=== PATIENT | male | born 1985 | race Caucasian/White ===

== ENCOUNTER 2019-04-25 20:34 | Emergency (ER) | payer SELFPAY ==
[2019-04-25 20:44] VITALS: BP 146/105; PULSE 99; RESP 17; TEMP 36.9; O2SAT 98; BMI 25.1
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
[2019-04-25] MEDS: HYDROcodone-acetaminophen 7.5-325 mg Tablet 1 TAB PO (21:23)
[2019-04-25 22:40] VITALS: RESP 18
[2019-04-25] MEDS: morphine 4 mg/mL SDV 1 mL IM (22:40)
[2019-04-25 22:45] VITALS: PULSE 94; RESP 18; O2SAT 95
== END 2019-04-25 22:46 | disposition home or self-care (01) ==
PROVIDERS: Emergency Provider Physician Assistant; Family Provider Nurse Practitioner Family; PCP Nurse Practitioner Family
DX: F17.200 Nicotine dependence, unspecified, uncomplicated (principal); S63.501A Unspecified sprain of right wrist, initial encounter; S66.811A Strain of other specified muscles, fascia and tendons at wrist and hand level, right hand, initial encounter; W22.8XXA Striking against or struck by other objects, initial encounter
CPT/HCPCS: 12345; 73130; 96372; 99281; 99283; J2270

== ENCOUNTER 2020-02-01 12:27 | Emergency (ER) | payer SELFPAY ==
[2020-02-01 12:30] VITALS: BMI 25.8
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
[2020-02-01 12:37] VITALS: BP 111/68; PULSE 136; RESP 16; TEMP 36.6; O2SAT 96
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
[2020-02-01] MEDS: LORazepam 2 mg/mL INJ 1 mL IM (12:55)
[2020-02-01 12:57] LABS: Basophils % 0.1 %; Eosinophils # 0.1 10^3/uL (0.0-0.8); Eosinophils % 0.3 %; Hemoglobin 17.6 g/dL (11.7-16.6); Lymphocytes # 1.3 10^3/uL (0.8-4.8); Mean Corpuscular HGB Conc 34.5 g/dL (30.0-36.0); Mean Platelet Volume 8.7 fL (7.4-10.4); Monocytes # 0.9 10^3/uL (0.2-0.9); Monocytes % 4.3 %; Neutrophils # 18.57 10^3/uL (1.8-7.7); Neutrophils % 88.8 %; Nucleated Red Blood Cells % 0 %; Platelet Count 320 10^3/cmm (130-400); Red Blood Count 5.86 10^6/uL (4.1-5.3); Red Cell Distribution Width 12.3 % (12.1-15.1); White Blood Count 20.9 10^3/uL (4.0-10.0)
[2020-02-01 13:15] LABS: Alanine Aminotransferase 24 U/L (0-41); Albumin Level 4.1 g/dL (3.5-5.2); Alkaline Phosphatase 93 IU/L (40-130); Anion Gap 16.5 (5-19); Aspartate Amino Transferase 27 U/L (0-40); Blood Urea Nitrogen 14 mg/dL (6-20); Calcium 9.5 mg/dL (8.5-10.5); Carbon Dioxide 21 mmol/L (22-29); Chloride 104 mmol/L (98-107); Globulin 3.3 g/dL (1.3-4.6); Glomerular Filtration Rate 111.3 mL/min (90-130); Glucose 96 mg/dL (65-115); Osmolality Calculated 286 mOsm/kg (285-295); Potassium 3.5 mmol/L (3.5-5.1); Sodium 138 mmol/L (136-145); Total Bilirubin 0.5 mg/dL (0.15-1.2); Total Protein 7.4 g/dL (6.6-8.7)
[2020-02-01 13:19] LABS: Acetaminophen < 5.0 ug/mL (10-30); Alcohol Level < 10 mg/dL (0-10); Salicylate < 0.3 mg/dL (3-10)
[2020-02-01] MEDS: iohexol 300 mg/mL 100 mL Btl IV (13:29)
--- NOTE | 2020-02-01 13:53 | PC.NURSE ---
Pt is lying supine, eyes closed and appears to be asleep. Pt is snoring. Blood cultures and lactic drawn and sent to lab.
[2020-02-01 14:18] LABS: Lactate (Lactic Acid level) 0.8 mmol/L (0.5-2.2)
[2020-02-01 14:35] LABS: SARS Covid-2 Antigen Negative (Negative)
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
[2020-02-01 16:03] LABS: Add Urine Microscopic? YES; Bilirubin Urine Neg (Negative); Blood Urine Neg (Negative); Glucose Urine UA Norm (Normal); Ketones Urine Negative (Negative); Leukocyte Esterase Urine Negative (Negative); Nitrate Urine Negative (Negative); Protein Urine Trace (Negative); Urine Appearance Clear (CLEAR); Urine Color Yellow (Yellow); Urobilinogen Urine Norm (Negative); pH Urine 7 (5-7)
[2020-02-01 16:08] LABS: Add Urine Culture? No; Bacteria Urine 1+ /hpf; Hyaline Casts Urine 0-4 /lpf; Squamous Epithelial Cell Urine 0-4 /hpf (0-5); WBC Urine 0-4 /hpf (0-5)
[2020-02-01 16:12] LABS: Amphetamines Screen Urine Positive (Negative); Barbiturates Screen Urine Negative (Negative); Benzodiazepines Screen Urine Positive (Negative); Cocaine Screen Urine Negative (Negative); Opiate Screen Urine Negative (Negative); PCP Screen Urine Negative (Negative); THC Screen Urine Positive (Negative)
[2020-02-01 16:30] VITALS: PULSE 88; RESP 16; O2SAT 92
[2020-02-01] MEDS: albuterol 8 gm MDI 2 PUFF INHALATION (16:30)
== END 2020-02-01 16:30 ==
PROVIDERS: Emergency Provider Registered Nurse; PCP Nurse Practitioner Family
DX: M54.6 Pain in thoracic spine (principal); F19.10 Other psychoactive substance abuse, uncomplicated; F17.210 Nicotine dependence, cigarettes, uncomplicated
CPT/HCPCS: 12345; 70450; 71260; 72125; 72128; 72131; 74177; 80053; 80306; 80307; 81001; 83605; 85025; 87040; 87426; 94640; 96372; 96375; 99282; 99283; J2060; J3535; Q9967

== ENCOUNTER → 2021-09-12 11:09 | Outpatient (BNVA) | payer SELFPAY | PROVIDERS: PCP Nurse Practitioner Family; Visit Provider Family Medicine | DX: K04.7 Periapical abscess without sinus (principal); M62.838 Other muscle spasm; F31.81 Bipolar II disorder; M54.30 Sciatica, unspecified side | CPT/HCPCS: 80053; 83735 ==

== ENCOUNTER 2021-10-12 06:00 | Outpatient (CLI) | payer SELFPAY | END 2021-10-12 23:00 | disposition home or self-care (01) | LOC: RAD 12-18 12:27 | PROVIDERS: PCP Nurse Practitioner Family; Visit Provider Family Medicine | DX: R79.89 Other specified abnormal findings of blood chemistry (principal) | CPT/HCPCS: 80076; 86705; 86706; 86709; 86803; 87340 ==

== ENCOUNTER → 2021-11-28 11:09 | Outpatient (BNVA) | payer SELFPAY | PROVIDERS: PCP Nurse Practitioner Family; Visit Provider Nurse Practitioner Family | DX: B19.20 Unspecified viral hepatitis C without hepatic coma (principal); M62.838 Other muscle spasm; R79.89 Other specified abnormal findings of blood chemistry; M54.9 Dorsalgia, unspecified; G89.29 Other chronic pain | CPT/HCPCS: 80053; 82607; 83735; 84443; 85025; 87522; 87902 ==

== ENCOUNTER → 2022-10-29 15:43 | Outpatient (BNVA) | payer MEDICAID, SELFPAY | PROVIDERS: Visit Provider Nurse Practitioner Family | DX: F31.81 Bipolar II disorder (principal) | CPT/HCPCS: 80053; 85025 ==

== ENCOUNTER → 2023-01-03 13:07 | Outpatient (BNVA) | payer OTHER, MEDICAID, SELFPAY | PROVIDERS: PCP Nurse Practitioner Family; Visit Provider Nurse Practitioner Family | DX: B19.20 Unspecified viral hepatitis C without hepatic coma (principal); F31.81 Bipolar II disorder | CPT/HCPCS: 80053; 85025; 86705; 86706; 86709; 86803; 87340; 87522; 87902 ==

== ENCOUNTER → 2024-02-24 11:39 | Outpatient (BNVA) | payer OTHER, MEDICAID, SELFPAY | PROVIDERS: PCP Nurse Practitioner Family; Visit Provider Nurse Practitioner Family | DX: Z21 Asymptomatic human immunodeficiency virus [HIV] infection status (principal) | CPT/HCPCS: 80053; 80061; 84443; 85025; 87536 ==

== ENCOUNTER 2024-05-26 16:10 | Emergency (ER) | payer MEDICAID, SELFPAY ==
[2024-05-26 16:17] VITALS: BP 155/97; PULSE 100; RESP 18; TEMP 36.7; O2SAT 100
[2024-05-26 16:24] VITALS: PULSE 101; RESP 20; O2SAT 100
[2024-05-26 16:28] LABS: Basophils % 0.3 %; Eosinophils % 0.5 %; Hematocrit 49.1 % (37-53); Lymphocytes # 3.1 10^3/uL (0.8-4.8); Lymphocytes % 40.1 %; Mean Corpuscular HGB Conc 33.4 g/dL (30-55); Mean Corpuscular Hemoglobin 30.7 pg (27-33); Mean Corpuscular Volume 91.9 fl (82-101); Mean Platelet Volume 8.2 fL (7.4-10.4); Monocytes # 0.7 10^3/uL (0.2-0.9); Monocytes % 8.6 %; Neutrophils # 3.93 10^3/uL (1.8-7.7); Neutrophils % 50.4 %; Nucleated Red Blood Cells % 0 %; Platelet Count 173 10^3/cmm (157-399); Red Blood Count 5.34 10^6/uL (3.85-5.65); Red Cell Distribution Width 12.9 % (12.1-15.1); White Blood Count 7.79 10^3/uL (3.29-11.43)
--- NOTE | 2024-05-26 16:31 | CTR_ITS ---
PROCEDURE INFORMATION: Exam: CT Abdomen And Pelvis With Contrast Exam date and time: 05/26/2024 4:47 PM Age: 39 years old Clinical indication: Abdominal pain; Generalized; Additional info: Bright red blood per rectum, pain, family HX colon cancer-dad age 40 TECHNIQUE: Imaging protocol: Computed tomography of the abdomen and pelvis with contrast. Axial, coronal and sagittal reformatted images were created and reviewed. Radiation optimization: All CT scans at this facility use at least one of these dose optimization techniques: automated exposure control; mA and/or kV adjustment per patient size (includes targeted exams where dose is matched to clinical indication); or iterative reconstruction. Contrast material: OMNIPAQUE 350; Contrast volume: 100 ml; Contrast route: INTRAVENOUS (IV); COMPARISON: CT chest abdpel w/*[id number] 02/01/2020 1:05 PM RADIATION DOSE METRICS: Total DLP (mGy-cm): 378.48 FINDINGS: Diaphragm: Small hiatal hernia and mild nonspecific distal esophageal wall thickening, suggesting chronic reflux/esophagitis. Liver: Unremarkable. Gallbladder and biliary ducts: No radiodense gallstones. No biliary ductal dilatation. Pancreas: Unremarkable. Spleen: Unremarkable. Adrenal glands: Normal. No mass. Kidneys and ureters: 7 mm low-density left renal lesion, too small to characterize (no follow-up is indicated based on the imaging appearance). Nonobstructing left renal calculus. No hydronephrosis. Stomach and bowel: No bowel wall thickening. No obstruction. No pneumatosis. Appendix: Normal. Intraperitoneal space: No free fluid. No organized fluid collection. No free air. Vasculature: Unremarkable. No aneurysm. Lymph nodes: No pathologically enlarged lymph nodes. Urinary bladder: Unremarkable as visualized. Reproductive: Unremarkable. Bones/joints: No acute osseous abnormality. Soft tissues: Unremarkable. CT/CT abdomen pelvis w con* [id number]: 1[address] No CT evidence of acute intra-abdominal or pelvic pathology. 2. Additional findings, as above. COMMENTS: Consistent with the [employer]'s Incidental Findings Committee white paper (J Am Da Radiol 2018): Any incidental renal lesion less than 1 cm or classified as too small to characterize, or any incidental cystic renal lesion characterized as simple-appearing, is likely benign. No follow-up imaging is recommended for these lesions per consensus recommendations based on imaging criteria.
--- NOTE | 2024-05-26 16:32 | ED_ITS ---
Documented by User: DIEGO Shah 05/26/24 17:04 HPI - GI Bleed 2 General: Chief complaint: GI Bleed Stated complaint: bloody stool - HIV positive Time Seen by Provider: 05/26/24 16:13 Source: patient Mode of arrival: ambulatory Limitations: no limitations History of Present Illness: Patient is a 39-year-old male who presents to ED today with a complaint of bright red blood per rectum. He states over the past few months he has noticed blood mixed in with his stool. He did seek medical evaluation through his primary care provider who told him it was not related to hemorrhoids and did schedule him for a colonoscopy however he missed this appointment. Patient concerned as he states his father was diagnosed with colon cancer young and at the age of 40. He states multiple other family members also have been diagnosed with colon cancer. He states yesterday he had an episode of stool that contained black pellets and mucus. Today he noticed bright red blood pouring out of him reporting it felt like diarrhea. He has not had any since further episodes. He is complaining of pain to his lower abdomen. Of note, patient tells me he does have a history of AIDS. He is not on any medications for this currently. He also states he is homosexual but does not engage in receptive anal intercourse. No fevers. Patient is currently incarcerated. Patient denies history of NSAID use. States he drank alcohol for the first time in 10 years a few weeks ago. He is not on anticoagulation. complaint: gross hematochezia Onset (ago): hour(s) Severity: moderate Relieving factors: none Exacerbating factors: none Associated symptoms: Reports abdominal pain; Denies chills, fever(s), malaise, nausea or vomiting Treatments Prior to Arrival: none Related Data Home Medications ?Medication ?Instructions ?Recorded ?Confirmed loratadine 10 mg tablet 10 mg PO DAILY 05/26/2410/12 Allergies Allergy/AdvReac Type Severity Reaction Status Date / Time venlafaxine (From Effexor) Allergy Intermediate sores in Verified 01/03/23 11:12 mouth buspirone Allergy ADR-Shakine Verified 01/03/23 11:47 ss Review of Systems 2 Const: Denies: fever(s), chills, body aches, fatigue or malaise Card: Denies: chest pain Resp: Denies: dyspnea GI: Reports: abdominal pain and hematochezia; Denies: nausea, vomiting, hematemesis or heartburn Neuro: Denies: dizziness PFSH ED 2 PFSH: Social History Smoking and tobacco/nicotine status: current every day tobacco/nicotine user Second hand smoke exposure: No Alcohol intake: former Substance/Drug Use: former Date of last use: 3 weeks ago service: No Current occupational status: unemployed Current gender identity: Male Special vilma needs: No Physical Exam 2 Const: COMMON NORMALS: no acute distress, average body habitus, patient oriented x3, no limitations, healthy appearing, alert and well nourished Eye: COMMON NORMALS: no scleral icterus Resp: COMMON NORMALS: normal respiratory effort and clear to auscultation bilaterally AUSCULTATION: clear to auscultation bilaterally Cardio: COMMON NORMALS: regular rate and regular rhythm RATE: regular rate RHYTHM: regular rhythm GI: COMMON NORMALS: Normal to inspection, nondistended, normoactive bowel sounds present, Soft to palpation, No hepatosplenomegaly present and no masses INSPECTION: Yes normal to inspection AUSCULTATION: Yes normoactive bowel sounds PALPATION: Yes Soft to palpation, Yes Tenderness to palpation present (GI) (across lower abdomen), No Guarding due to palpation present (GI), No Rigid due to palpation and Yes No hepatosplenomegaly present RECTAL EXAM: Yes visual inspection normal, Yes heme negative stool, No hemorrhoids, No Lesions present (GI), No Fistula present (GI) and No Anal fissure(s) present Neuro: COMMON NORMALS: patient oriented x3 SENSORIUM/ORIENTATION: Yes alert Course 2 Vital Signs: Vital signs: Vital Signs Temperature 98.1 F 05/26/24 16:17 Pulse Rate 90 05/26/24 17:35 Respiratory Rate 20 H 05/26/24 16:24 Blood Pressure 121/82 05/26/24 17:35 Pulse Oximetry 95 05/26/24 17:35 Oxygen Delivery Me thod Room Air 05/26/24 17:35 MDM - GI Bleed Medical Decision Making Patient is a 39-year-old male here for bright red bleeding per rectum. Hemoccult negative. Vital signs stable. Blood work with a hemoglobin of 16.4. CT scan pending at time of shift change. Medical Records I reviewed the patient's medical records. Lab Data I reviewed the patient's lab results. 05/26/24 16:21 05/26/24 16:21 Radiology Impressions Abdomen/Pelvis CT 05/26/24 16:[address]: [address] evidence of acute intra-abdominal or pelvic pathology. 2. Additional findings, as above. COMMENTS: Consistent with the [employer]'s Incidental Findings Committee white paper (J Am Da Radiol 2018): Any incidental renal lesion less than 1 cm or classified as too small to characterize, or any incidental cystic renal lesion characterized as simple-appearing, is likely benign. No follow-up imaging is recommended for these lesions per consensus recommendations based on imaging criteria. Laboratory Results WBC 7.79 10^3/uL (3.29-11.43) 05/26/24 16:21 RBC 5.34 10^6/uL (3.85-5.65) 05/26/24 16:21 Hgb 16.40 g/dL (11.27-16.99) 05/26/24 16:21 Hct 49.1 % (37-53) 05/26/24 16:21 MCV 91.9 fl (82-101) 05/26/24 16:21 MCH 30.7 pg (27-33) 05/26/24 16:21 MCHC 33.4 g/dL (30-55) 05/26/24 16:21 RDW 12.9 % (12.1-15.1) 05/26/24 16:21 Plt Count 173 10^3/cmm (157-399) 05/26/24 16:21 MPV 8.2 fL (7.4-10.4) 05/26/24 16:21 Neut % (Auto) 50.4 % 05/26/24 16:21 Lymph % (Auto) 40.1 % 05/26/24 16:21 [place] % (Auto) 8.6 % 05/26/24 16:21 Eos % (Auto) 0.5 % 05/26/24 16:21 Baso % (Auto) 0.3 % 05/26/24 16:21 Neut # (Auto) 3.93 10^3/uL (1.8-7.7) 05/26/24 16:21 Lymph # (Auto) 3.1 10^3/uL (0.8-4.8) 05/26/24 16:21 [place] # (Auto) 0.7 10^3/uL (0.2-0.9) 05/26/24 16:21 Eos # (Auto) 0.0 10^3/uL (0.0-0.8) 05/26/24 16:21 Baso # (Auto) 0.0 10^3/uL (0.0-0.1) 05/26/24 16:21 Nucleated RBC % (auto) 0 % 05/26/24 16:21 Nucleated RBCs # 0.0 /100WBC 05/26/24 16:21 PT 13.40 SECONDS (12.1-14.9) 05/26/24 16:21 INR 0.95 (0.8-1.2) 05/26/24 16:21 Sodium 138 mmol/L (136-145) 05/26/24 16:21 Potassium 4.2 mmol/L (3.5-5.1) 05/26/24 16:21 Chloride 105 mmol/L (98-107) 05/26/24 16:21 Carbon Dioxide 25 mmol/L (22-29) 05/26/24 16:21 Anion Gap 12.2 (5-19) 05/26/24 16:21 BUN 12 mg/dL (6-20) 05/26/24 16:21 Creatinine 0.9 mg/dL (0.7-1.2) 05/26/24 16:21 GFR Calculation 94.4 mL/min (90-130) 05/26/24 16:21 Glucose 80 mg/dL (65-115) 05/26/24 16:21 Calculated Osmolality 285 mOsm/kg (285-295) 05/26/24 16:21 Calcium 9.4 mg/dL (8.5-10.5) 05/26/24 16:21 Total Bilirubin 0.4 mg/dL (0.15-1.2) 05/26/24 16:21 AST 18 U/L (0-40) 05/26/24 16:21 ALT 15 U/L (0-41) 05/26/24 16:21 Alkaline Phosphatase 79 U/L (40-130) 05/26/24 16:21 Total Protein 8.0 g/dL (6.6-8.7) 05/26/24 16:21 Albumin 4.3 g/dL (3.5-5.2) 05/26/24 16:21 Globulin 3.7 g/dL (1.3-4.6) 05/26/24 16:21 Discharge Plan Discharge Patient Disposition: Home Clinical Impression: BRBPR (bright red blood per rectum) Condition: Stable Prescriptions: No Action loratadine 10 mg tablet 10 mg PO DAILY Discharge Orders: Discharge ED (Routine); Ordered 05/26/24 Ordered By: Davi Bay Referrals: Preeti Laughlin FNP [Primary Care Provider] - Patient Instructions: Rectal Bleeding (ED) Activity Restrictions/Additional Instructions: Follow-up with GI as we discussed. Return with any further bleeding or worsening of your abdominal pain. Print Language: Estonian Sign Out Sign Out Data: Patient Sign Out occurred on 05/26/24 at 17:06. Patient's care was discussed, and care was transferred from DIEGO Shah to DIEGO Man. Coding Level of Care Code ED Social Work Case Manager for Chg Fwd Documented by User: DIEGO Man 05/26/24 17:44 HPI - GI Bleed 2 General: Chief complaint: GI Bleed Stated complaint: bloody stool - HIV positive Time Seen by Provider: 05/26/24 16:13 Related Data Home Medications ?Medication ?Instructions ?Recorded ?Confirmed loratadine 10 mg tablet 10 mg PO DAILY 05/26/2410/12 Allergies Allergy/AdvReac Type Severity Reaction Status Date / Time venlafaxine (From Effexor) Allergy Intermediate sores in Verified 01/03/23 11:12 mouth buspirone Allergy ADR-Shakine Verified 01/03/23 11:47 ss PFSH ED 2 PFSH: Social History Smoking and tobacco/nicotine status: current every day tobacco/nicotine user Second hand smoke exposure: No Alcohol intake: former Substance/Drug Use: former Date of last use: 3 weeks ago service: No Current occupational status: unemployed Current gender identity: Male Special vilma needs: No Course 2 Vital Signs: Vital signs: Vital Signs Temperature 98.1 F 05/26/24 16:17 Pulse Rate 90 05/26/24 17:35 Respiratory Rate 20 H 05/26/24 16:24 Blood Pressure 121/82 05/26/24 17:35 Pulse Oximetry 95 05/26/24 17:35 Oxygen Delivery Me thod Room Air 05/26/24 17:35 MDM - GI Bleed Medical Decision Making Patient is a 39-year-old male here for bright red bleeding per rectum. Hemoccult negative. Vital signs stable. Blood work with a hemoglobin of 16.4. CT scan pending at time of shift change. Care of patient assumed at shift change by DIEGO Shah. CT pending at time of transfer, this did result in no acute findings. With reports of bleeding and normal external exam, suspect internal hemorrhoid, and on recheck patient states pain had subsided and he has not had any further bleeding. GI referral had been placed and he will follow-up accordingly. Discussed return precautions at which he verbalized understanding. Notably he was also expressing much relief due to his normal workup, suspect element of anxiety. Lab Data 05/26/24 16:21 05/26/24 16:21 Radiology Impressions Abdomen/Pelvis CT 05/26/24 16:[address]: 1[address] No [address] evidence of acute intra-abdominal or pelvic pathology. 2. Additional findings, as above. COMMENTS: Consistent with the [employer]'s Incidental Findings Committee white paper (J Am Da Radiol 2018): Any incidental renal lesion less than 1 cm or classified as too small to characterize, or any incidental cystic renal lesion characterized as simple-appearing, is likely benign. No follow-up imaging is recommended for these lesions per consensus recommendations based on imaging criteria. Laboratory Results WBC 7.79 10^3/uL (3.29-11.43) 05/26/24 16:21 RBC 5.34 10^6/uL (3.85-5.65) 05/26/24 16:21 Hgb 16.40 g/dL (11.27-16.99) 05/26/24 16:21 Hct 49.1 % (37-53) 05/26/24 16:21 MCV 91.9 fl (82-101) 05/26/24 16:21 MCH 30.7 pg (27-33) 05/26/24 16:21 MCHC 33.4 g/dL (30-55) 05/26/24 16:21 RDW 12.9 % (12.1-15.1) 05/26/24 16:21 Plt Count 173 10^3/cmm (157-399) 05/26/24 16:21 MPV 8.2 fL (7.4-10.4) 05/26/24 16:21 Neut % (Auto) 50.4 % 05/26/24 16:21 Lymph % (Auto) 40.1 % 05/26/24 16:21 [place] % (Auto) 8.6 % 05/26/24 16:21 Eos % (Auto) 0.5 % 05/26/24 16:21 Baso % (Auto) 0.3 % 05/26/24 16:21 Neut # (Auto) 3.93 10^3/uL (1.8-7.7) 05/26/24 16:21 Lymph # (Auto) 3.1 10^3/uL (0.8-4.8) 05/26/24 16:21 [place] # (Auto) 0.7 10^3/uL (0.2-0.9) 05/26/24 16:21 Eos # (Auto) 0.0 10^3/uL (0.0-0.8) 05/26/24 16:21 Baso # (Auto) 0.0 10^3/uL (0.0-0.1) 05/26/24 16:21 Nucleated RBC % (auto) 0 % 05/26/24 16: Nucleated RBCs # 0.0 /100WBC 05/26/24 16: PT 13.40 SECONDS (12.1-14.9) 05/26/24 16:21 INR 0.95 (0.8-1.2) 05/26/24 16:21 Sodium 138 mmol/L (136-145) 05/26/24 16:21 Potassium 4.2 mmol/L (3.5-5.1) 05/26/24 16:21 Chloride 105 mmol/L (98-107) 05/26/24 16:21 Carbon Dioxide 25 mmol/L (22-29) 05/26/24 16:21 Anion Gap 12.2 (5-19) 05/26/24 16:21 BUN 12 mg/dL (6-20) 05/26/24 16:21 Creatinine 0.9 mg/dL (0.7-1.2) 05/26/24 16:21 GFR Calculation 94.4 mL/min (90-130) 05/26/24 16:21 Glucose 80 mg/dL (65-115) 05/26/24 16:21 Calculated Osmolality 285 mOsm/kg (285-295) 05/26/24 16:21 Calcium 9.4 mg/dL (8.5-10.5) 05/26/24 16:21 Total Bilirubin 0.4 mg/dL (0.15-1.2) 05/26/24 16:21 AST 18 U/L (0-40) 05/26/24 16:21 ALT 15 U/L (0-41) 05/26/24 16:21 Alkaline Phosphatase 79 U/L (40-130) 05/26/24 16:21 Total Protein 8.0 g/dL (6.6-8.7) 05/26/24 16:21 Albumin 4.3 g/dL (3.5-5.2) 05/26/24 16:21 Globulin 3.7 g/dL (1.3-4.6) 05/26/24 16:21 All radiology interpretation(s) finalized by discharge Discharge Plan Discharge Patient Disposition: Home Clinical Impression: BRBPR (bright red blood per rectum) Condition: Stable Prescriptions: No Action loratadine 10 mg tablet 10 mg PO DAILY Discharge Orders: Discharge ED (Routine); Ordered 05/26/24 Ordered By: Davi Bay Referrals: Preeti Laughlin FNP [Primary Care Provider] - Patient Instructions: Rectal Bleeding (ED) Activity Restrictions/Additional Instructions: Follow-up with GI as we discussed. Return with any further bleeding or worsening of your abdominal pain. Print Language: Estonian Sign Out Sign Out Data: Patient Sign Out occurred on 05/26/24 at 17:06. Patient's care was discussed, and care was transferred from DIEGO Shah to DIEGO Man. Coding Level of Care Code ED Social Work Case Manager for Parviz Maloney
[2024-05-26] MEDS: iohexol 350 mg/mL 500 mL Btl (per mL) IV (16:52)
[2024-05-26 16:54] LABS: Alanine Aminotransferase 15 U/L (0-41); Albumin Level 4.3 g/dL (3.5-5.2); Alkaline Phosphatase 79 U/L (40-130); Anion Gap 12.2 (5-19); Aspartate Amino Transferase 18 U/L (0-40); Blood Urea Nitrogen 12 mg/dL (6-20); Calcium 9.4 mg/dL (8.5-10.5); Carbon Dioxide 25 mmol/L (22-29); Chloride 105 mmol/L (98-107); Globulin 3.7 g/dL (1.3-4.6); Glomerular Filtration Rate 94.4 mL/min (90-130); Glucose 80 mg/dL (65-115); Osmolality Calculated 285 mOsm/kg (285-295); Potassium 4.2 mmol/L (3.5-5.1); Sodium 138 mmol/L (136-145); Total Bilirubin 0.4 mg/dL (0.15-1.2)
[2024-05-26 17:05] LABS: INR 0.95 (0.8-1.2)
[2024-05-26 17:22] VITALS: BP 132/80; PULSE 93; O2SAT 98
[2024-05-26 17:34] VITALS: BP 121/82; BP 140/84; BP 143/80; PULSE 85; PULSE 90; PULSE 92
[2024-05-26 17:35] VITALS: BP 121/82; PULSE 90; O2SAT 95
--- NOTE | 2024-05-26 18:00 | PC.NURSE ---
PT CURRENTLY AT [facility]
[2024-05-26 18:06] VITALS: BP 125/83; PULSE 87; O2SAT 97
--- NOTE | 2024-05-27 11:30 | DCPLANNER ---
messaged gen surg for er f/u
== END 2024-05-26 18:08 | disposition home or self-care (01) ==
PROVIDERS: Emergency Medicine; Emergency Provider Physician Assistant; PCP Nurse Practitioner Family
DX: K62.5 Hemorrhage of anus and rectum (principal); Z72.0 Tobacco use
CPT/HCPCS: 36415; 74177; 80053; 85025; 85610; 99285

== ENCOUNTER → 2024-06-09 13:31 | Outpatient (BNVA) | payer MEDICAID, SELFPAY | PROVIDERS: PCP Nurse Practitioner Family; Visit Provider Surgery | DX: K92.1 Melena (principal); Z80.0 Family history of malignant neoplasm of digestive organs | CPT/HCPCS: 99204 ==

== ENCOUNTER → 2024-06-30 12:57 | Outpatient (BNVA) | payer MEDICAID, SELFPAY | PROVIDERS: PCP Nurse Practitioner Family; Visit Provider Nurse Practitioner Family | DX: B19.20 Unspecified viral hepatitis C without hepatic coma (principal); Z21 Asymptomatic human immunodeficiency virus [HIV] infection status | CPT/HCPCS: 80053; 84443; 85025; 87522; 87536 ==

== ENCOUNTER 2024-07-16 05:54 | Day surgery (SDC) | payer MEDICAID, SELFPAY ==
--- NOTE | 2024-07-16 05:54 | W.PM.OPSFHP ---
Same Day Surgery H&P Indication for Procedure/HPI DATE OF PROCEDURE: July 16, 2024 CHIEF COMPLAINT/INDICATIONFOR SURGICAL PROCEDURE: rectal bleeding PREOP DIAGNOSIS: same PLANNED PROCEDURE: Operation Date: 07/16/24 07:00 Proposed Procedures p Colonoscopy(Not Applicable) - Davi Ramachandran MD Medications/Allergies* Home Medications ?Medication ?Instructions ?Recorded ?Confirmed ?Type bupropion HCl 300 mg 24 hr tablet, 300 mg PO DAILY 07/14/24 07/14/24 History extended release Allergies/Adverse Reactions Allergy/AdvReac Type Severity Reaction Status Date / Time venlafaxine (From Effexor) Allergy Intermediate sores in Verified 06/30/24 10:45 mouth buspirone Allergy ADR-Shakine Verified 06/30/24 10:45 ss Pertinent History/Comorbid Conditions* Family History (Updated 06/09/24 @ 13:51 by Gabriela Hayes LPN) Family/Other Father Colon cancer Father passed at age 40 Family/Other passed in her 50s Social History Smoking and tobacco/nicotine status: current every day tobacco/nicotine user Second hand smoke exposure: No Alcohol intake: former Substance/Drug Use: former Date of last use: 3 weeks ago service: No Current occupational status: unemployed Current gender identity: Male Special vilma needs: No Pertinent Exam Findings alert, oriented x 3, clear to auscultation bilaterally and regular rate & rhythm Recommendations Surgery/Procedure today Coding Level of Care Code Acute Code for Matteog Fwd
[2024-07-16 06:17] VITALS: BP 126/85; PULSE 100; RESP 18; TEMP 36.6; O2SAT 98; BMI 20.9
[2024-07-16] MEDS: sodium chloride 0.9% 1,000 ML 15 ML IV (06:39)
--- NOTE | 2024-07-16 06:54 | ANES.PREANE2 ---
Pre-Anesthetic Assessment Height/Weight: Height 1.8 m Weight 68.039 kg Temp Pulse Resp BP Pulse Ox O2 Del Method 97.9 F 100 18 126/85 98 Room Air 07/16/24 06:17 07/16/24 06:17 07/16/24 06:17 07/16/24 06:17 07/16/24 06:17 07/16/24 06:17 Preop Diagnosis: Rectal bleeding Operation Date: 07/16/24 07:00 Proposed Procedures p Colonoscopy(Not Applicable) - Davi Ramachandran MD Familial anesthetic complications: none Was Beta Vin taken within 24 hours: N/A Was Clonidine taken within 24 hours: N/A Last intake: Intake Last Liquid Date 07/15/24 Last Liquid Time 20:00 Last Solid Date 07/14/24 Last Solid Time 05:00 Social Tobacco (chew, last use >24hrs ago) and No alcohol Exam alert, oriented x 3, clear to auscultation bilaterally and regular rate & rhythm Airway Cervical ROM: within normal limits Mallampati: Class II Dentition: full History/ROS No significant history except as noted Pulmonary Asthma Albuterol x2 puffs preop CV/HEM None reported HIV + None reported Hepatic Hep C GI None reported Metabolic None reported Musc/skel None reported Neuropsych Bipolar Anesthetic Plan ASA status: 3 Anesthesia: MAC Risk of > 500 ml blood loss (7ml/kg in children): No Medications/Allergies Home Medications ?Medication ?Instructions ?Recorded ?Confirmed ?Last Taken ?Type albuterol sulfate 90 mcg/actuation 2 puff inhalation Q6H PRN 06/30/24 07/16/24 07/14/24 Rx aerosol inhaler (Ventolin HFA) shortness of breath or wheezing #8.5 grams ibuprofen 800 mg tablet 800 mg PO Q8H PRN pain #60 tabs 06/30/24 07/16/24 07/14/24 Rx bupropion HCl 300 mg 24 hr tablet, 300 mg PO DAILY 07/14/24 07/16/24 07/14/24 History extended release Allergies Allergy/AdvReac Type Severity Reaction Status Date / Time venlafaxine (From Effexor) Allergy Intermediate sores in Verified 07/16/24 06:16 mouth buspirone Allergy ADR-Shakine Verified 07/16/24 06:16 ss Current Medications Generic Name Dose Route Start Last Admin Trade Name Freq PRN Reason Stop Dose Admin Sodium Chloride 1,000 mls @ 15 mls/hr 07/16/24 05:58 07/16/24 06:39 Sodium Chloride 0.9% IV 07/17/24 05:57 15 mls/hr .Q24H PRN Administration COLONOSCOPY FLUIDS PFSH Anesthesia Family History Father Colon cancer passed at age 40 Family/Other Colon cancer passed in her 50s Social History Smoking and tobacco/nicotine status: current every day tobacco/nicotine user Second hand smoke exposure: No Alcohol intake: former Substance/Drug Use: former Date of last use: 3 weeks ago service: No Current occupational status: unemployed Current gender identity: Male Special vilma needs: No
[2024-07-16 07:24] VITALS: BP 97/65; PULSE 95; RESP 18; TEMP 36.2; O2SAT 96
--- NOTE | 2024-07-16 08:15 | ANE.PACU2 ---
Inpatient post-anesthesia follow up: Airway intact: Yes Vital signs: Temperature 97.1 F Pulse Rate 95 Respiratory Rate 18 Blood Pressure 97/65 Pulse Oximetry 96 Oxygen Delivery Me thod Room Air Oxygen Flow Rate Fraction of Inspir ed Oxygen Hydration adequate: Yes Nausea and vomiting: No Pain level: 1 Mental status: Baseline
== END 2024-07-16 08:18 | disposition home or self-care (01) ==
PROVIDERS: PCP Nurse Practitioner Family; Visit Provider Surgery
PROC: 0DJD8ZZ Inspection of Lower Intestinal Tract, Via Natural or Artificial Opening Endoscopic (ICD-10-PCS; CPT 45378; principal; 2024-07-16 07:00)
DX: K57.31 Diverticulosis of large intestine without perforation or abscess with bleeding (principal); K64.8 Other hemorrhoids; J45.909 Unspecified asthma, uncomplicated; B19.20 Unspecified viral hepatitis C without hepatic coma; Z79.899 Other long term (current) drug therapy; Z88.8 Allergy status to other drugs, medicaments and biological substances; F17.220 Nicotine dependence, chewing tobacco, uncomplicated
CPT/HCPCS: 45380; 88305; J2704; J3010; J3535; J7030

== ENCOUNTER → 2024-08-04 13:46 | Outpatient (BNVA) | payer MEDICAID, SELFPAY | PROVIDERS: PCP Nurse Practitioner Family; Visit Provider Surgery | DX: Z09 Encounter for follow-up examination after completed treatment for conditions other than malignant neoplasm (principal); Z11.3 Encounter for screening for infections with a predominantly sexual mode of transmission; B20 Human immunodeficiency virus [HIV] disease; B37.0 Candidal stomatitis; B19.20 Unspecified viral hepatitis C without hepatic coma | CPT/HCPCS: 36415; 81381; 82955; 86360; 86480; 86592; 86705; 86706; 86777; 87340; 87491; 87591; 99205; 99213 ==

== ENCOUNTER → 2024-09-29 15:44 | Outpatient (BNVA) | payer MEDICAID, SELFPAY | PROVIDERS: PCP Nurse Practitioner Family; Visit Provider Student in an Organized Health Care Education/Training Program | DX: Z21 Asymptomatic human immunodeficiency virus [HIV] infection status (principal) | CPT/HCPCS: 36415; 87491; 87536; 87591 ==